=== PATIENT | male | born 1985 | race Hispanic/Latino ===

== ENCOUNTER 2021-05-13 18:32 | Emergency (ER) | payer OTHER, SELFPAY ==
[~2021-05-13] VITALS: Ht 190.5 cm; Wt 106.6 kg
[2021-05-13] MEDS ORDERED: IBUPROFEN 600 MG TABLET PO ONE (21:30)
[2021-05-13] MEDS ORDERED: NEOMY SULF/BACITRA/POLYMYXIN B 1 EACH PACKET TP STA (21:42)
[2021-05-13 21:51] VITALS: BP 126/73
[2021-05-13] MEDS ORDERED: IBUP-2088 PO (22:30)
== END 2021-05-13 22:48 | disposition home or self-care (01) ==
LOC: EDH 18:32
DX: S02.2XXA Fracture of nasal bones, initial encounter for closed fracture (principal); Z79.1 Long term (current) use of non-steroidal anti-inflammatories (NSAID); W20.8XXA Other cause of strike by thrown, projected or falling object, initial encounter; Y93.89 Activity, other specified; Y92.89 Other specified places as the place of occurrence of the external cause; Y99.8 Other external cause status
CPT/HCPCS: 70160